=== PATIENT | male | born 1965 | race Caucasian/White ===

== ENCOUNTER 2017-07-12 10:29 | Emergency (ER) | payer MEDICAID ==
[~2017-07-12] VITALS: Ht 170.2 cm; Wt 95.3 kg
[2017-07-12 10:40] VITALS: BP 124/80
--- NOTE | 2017-07-12 10:45 | NUR ---
PT TRIAGED AND RETURNED TO LOBBY WAITING FOR MSE.
--- NOTE | 2017-07-12 11:16 | NUR ---
PATIENT PRESENTS TO ED WITH C/O BACK PAIN x 3 DAYS. PT STATES HE GOT INOT AN ACCIDENT ABOUT A YEAR AGO.HX OF CHRONIC BACK PAIN;MEDS OF ACETAMINOPHEN/CAFFIENE/DIPHENHYDRAMINE . DENIES N/V/D; SKIN IS PINK/WARM/DRY; AAOX4 WITH EVEN AND STEADY GAIT; LUNGS CLEAR BL; HR EVEN AND REGULAR; PT DENIES ANY FEVER, CP, SOB, OR COUGH AT THIS TIME; PATIENT STATES PAIN OF 10/10 AT THIS TIME;PATIENT POSITIONED FOR COMFORT; HOB ELEVATED; BEDRAILS UP X2; BED DOWN. ER MD MADE AWARE OF PT STATUS.
--- NOTE | 2017-07-12 11:25 | NUR ---
DR BONE AT BEDSIDE.
[2017-07-12] MEDS ORDERED: METHOCARBAMOL 500 MG TAB PO SCH (11:35)
[2017-07-12] MEDS ORDERED: KETOROLAC 60 MG/2 ML VIAL IM ONE (11:35)
[2017-07-12 11:52] VITALS: BP 114/86
--- NOTE | 2017-07-12 11:52 | NUR ---
Patient discharged with v/s stable. Written and verbal after care instructions given and explained. Patient alert, oriented and verbalized understanding of instructions. Ambulatory with steady gait. All questions addressed prior to discharge. ID band removed. Patient advised to follow up with PMD. Rx of ROBAXIN AND LIDODERM PATCH given. Patient educated on indication of medication including possible reaction and side effects. Opportunity to ask questions provided and answered.
== END 2017-07-12 11:52 | disposition home or self-care (01) ==
LOC: MED 10:29
DX: G89.29 Other chronic pain (principal); M54.5 Low back pain
CPT/HCPCS: 96372; 99283; J1885